=== PATIENT | female | born 1935 | race Caucasian/White ===

== ENCOUNTER 2016-06-16 09:10 | Outpatient (CLI) | payer MEDICARE ==
[2016-06-16 10:39] LABS: ALT (SGPT) 13 U/L (0-55); AST (SGOT) 17 U/L (5-34); Albumin 3.9 g/dL (3.4-4.8); Alkaline Phosphatase 88 U/L (40-150); Anion Gap 12 mmol/L (10-20); BUN (Urea Nitrogen) 15 mg/dL (9.8-20.1); Bilirubin, Direct 0.3 mg/dL (0.1-0.3); Bilirubin, Total 0.9 mg/dL (0.2-1.2); Calc. Creatinine Clearance 0 mL/min (70-130); Calcium 9.1 mg/dL (7.8-10.44); Carbon Dioxide 29 mmol/L (23-31); Cardiac Risk 3.3 (Less than 4.5); Chloride 104 mmol/L (98-107); Cholesterol 196 mg/dL (< 200 Desired); Estimated GFR-MDRD 76; Glucose 98 mg/dL (83-110); HDL Cholesterol 60 mg/dL (>60 Neg Risk); LDL Cholesterol, Calculated 113 mg/dL; Potassium 4.1 mmol/L (3.5-5.1); Sodium 141 mmol/L (136-145); Triglycerides 117 mg/dL (Less than 150)
== END 2016-06-16 09:11 ==
LOC: MADLABBHPM 09:10
PROVIDERS: ATTEND Family Medicine
DX: I10 Essential (primary) hypertension (principal)
CPT/HCPCS: 36415; 80048; 80061; 80076

== ENCOUNTER 2016-09-30 11:10 | Outpatient (CLI) | payer MEDICARE ==
[2016-09-30 15:13] LABS: Bilirubin Negative (Negative); Blood, Urine Small (Negative); Clarity Cloudy (Clear); Glucose, Urine (Dipstick) Negative (Negative); Leukocyte Trace (Negative); Nitrite Negative (Negative); Protein, Urine (Dipstick) Negative (Neg-Trace); Specific Gravity, Urine 1.025 (1.005-1.030); Urobilinogen 0.2 mg/dL (0.2-1.0); pH, Urine 5.5 (5.0-9.0)
[2016-09-30 15:15] LABS: Bacteria/HPF 2+ HPF (None Seen); Crystals/HPF 2+ AMORPH URATES HPF (Negative); WBC/HPF 0-3 HPF (0-3)
== END 2016-09-30 11:11 | disposition home or self-care (01) ==
LOC: MADLABBHPM 11:10
PROVIDERS: ATTEND Family Medicine
DX: R32 Unspecified urinary incontinence (principal)
CPT/HCPCS: 36415; 81001; 87086

== ENCOUNTER 2017-05-14 17:27 | Emergency (ER) | payer MEDICARE ==
[2017-05-14 18:22] LABS: Bilirubin Negative (Negative); Blood, Urine Moderate (Negative); Glucose, Urine (Dipstick) Negative (Negative); Leukocyte Negative (Negative); Nitrite Negative (Negative); Protein, Urine (Dipstick) > or equal to 300 mg/dL (Neg-Trace); Urobilinogen 0.2 mg/dL (0.2-1.0); pH, Urine 5.5 (5.0-9.0)
[2017-05-14 18:31] LABS: Clarity Hazy (Clear); Specific Gravity, Urine 1.022 (1.002-1.036)
[2017-05-14 18:32] LABS: Bacteria/HPF 1+ HPF (None Seen)
[2017-05-14] MEDS ORDERED: Ondansetron HCl/PF 4 MG/2 ML Vial ONE (18:33)
[2017-05-14 18:49] LABS: #Basophils 0.1 thou/uL (0.0-0.2); #Lymphocytes 0.7 thou/uL (1.20-3.40); #Neutrophils 12.6 thou/uL (1.40-6.50); %Lymphocytes 4.5 % (21.0-51.0); %Monocytes 6.6 % (0.0-10.0); %Neutrophils 87.9 % (42.0-75.0); Hemoglobin 15.3 g/dL (12.0-16.0); Mean Corpuscular Volume 94.1 fl (81.0-99.0); Mean Platelet Volume 7.7 fL (7.4-10.4); Platelet Count 361 thou/uL (130-400); RBC Distribution Width 12.2 % (11.5-14.5); Red Blood Cell (RBC) Count 4.95 mill/uL (4.20-5.40); White Blood Cell (WBC) Count 14.3 thou/uL (4.8-10.8)
[2017-05-14 19:01] LABS: Anion Gap 16 mmol/L (10-20); BUN (Urea Nitrogen) 18 mg/dL (9.8-20.1); Calc. Creatinine Clearance 0 mL/min (70-130); Calcium 9.3 mg/dL (7.8-10.44); Carbon Dioxide 25 mmol/L (23-31); Chloride 105 mmol/L (98-107); Estimated GFR-MDRD 56; Glucose 140 mg/dL (83-110); Sodium 142 mmol/L (136-145)
[2017-05-14] MEDS ORDERED: Sulfameth/Trimethoprim DS 800-160mg TAB ONE (19:51)
[2017-05-14] MEDS ORDERED: Acetaminophen 500 MG TAB ONE (19:52)
--- NOTE | 2017-05-14 20:41 | CT ---
CT OF ABDOMEN AND PELVIS PERFORMED WITHOUT CONTRAST ENHANCEMENT: 05/14/17 HISTORY: Right sided abdomen pain. History of bladder cancer. COMPARISON: 01/21/13 study. The lung bases are clear of any infiltrative process. There are hypodensities within the liver which appear to represent cysts, these appear stable as comp ared to the previous exam. The spleen, pancreas and gallbladder regions are unremarkable. The right and left adrenal glands are normal in appearance. The right and left kidneys are normal in size. There is left sided parapelvic cyst formation. On the right side, there is right sided hydronep hrosis and hydroureter related to a 3 to 4 mm calculus which is located at approximately the L4-5 lev el. The ureter distal to this level appears nondilated. There is a nonobstructing lower pole left shannon al calculus noted and there is a punctate mid pole left renal calculus seen. There is no significant periaortic or mesenteric adenopathy. There is fairly extensive diffuse coloni c diverticulosis noted. CT OF PELVIS PERFORMED WITHOUT CONTRAST ENHANCEMENT: Extensive sigmoid diverticulosis is seen. No adenopathy or mass. No free fluid. Appendix region appea rs unremarkable. IMPRESSION: 1. Mild right sided hydronephrosis and hydroureter related to approximately a 4 mm calculus loca mickey at approximately the L4-5 Level. 2. Nonobstructing left renal calculi. 3. Extensive colonic diverticulosis. POS: [facility]
== END 2017-05-14 21:11 | disposition home or self-care (01) ==
LOC: MADERS 17:27
DX: N39.0 Urinary tract infection, site not specified (principal); N13.2 Hydronephrosis with renal and ureteral calculous obstruction; E78.5 Hyperlipidemia, unspecified; I10 Essential (primary) hypertension; E66.9 Obesity, unspecified; M19.90 Unspecified osteoarthritis, unspecified site; K21.9 Gastro-esophageal reflux disease without esophagitis; Z85.51 Personal history of malignant neoplasm of bladder; F41.9 Anxiety disorder, unspecified
CPT/HCPCS: 74176; 80048; 81003; 81015; 85025; 96374; J2405

== ENCOUNTER 2017-09-25 18:42 | Emergency (ER) | payer MEDICARE ==
[2017-09-25 19:44] LABS: Bilirubin Negative (Negative); Blood, Urine Small (Negative); Clarity Cloudy (Clear); Glucose, Urine (Dipstick) Negative (Negative); Leukocyte Small (Negative); Nitrite Negative (Negative); Protein, Urine (Dipstick) 30 mg/dL (Neg-Trace); Specific Gravity, Urine 1.025 (1.005-1.030); Urobilinogen 0.2 mg/dL (0.2-1.0)
[2017-09-25 19:58] LABS: Bacteria/HPF Rare-Few HPF (None Seen)
--- NOTE | 2017-09-25 20:16 | RAD ---
FOUR VIEWS OF THE LEFT KNEE: 09/25/17 INDICATION: Fall with left knee pain. FINDINGS: There is joint capsular distention. There is severe osteoarthrosis of the left knee. No acute fractur e or subluxation is evident. IMPRESSION: No acute osseous abnormality. POS: [facility]
--- NOTE | 2017-09-25 20:23 | RAD ---
THREE VIEWS OF THE LEFT ANKLE 09/25/17 INDICATION: Ankle injury. IMPRESSION: No acute fracture or subluxation is evident. There is soft tissue swelling of the lower foreleg and h indfoot. Enthesopathic change is seen off the posterior calcaneus. POS: [facility]
== END 2017-09-25 20:42 | disposition home or self-care (01) ==
LOC: MADERS 18:42
DX: S86.912A Strain of unspecified muscle(s) and tendon(s) at lower leg level, left leg, initial encounter (principal); S70.02XA Contusion of left hip, initial encounter; N39.0 Urinary tract infection, site not specified; R14.0 Abdominal distension (gaseous); E78.5 Hyperlipidemia, unspecified; I10 Essential (primary) hypertension; E66.9 Obesity, unspecified; M19.90 Unspecified osteoarthritis, unspecified site; F41.9 Anxiety disorder, unspecified; K21.9 Gastro-esophageal reflux disease without esophagitis; Z85.51 Personal history of malignant neoplasm of bladder; W19.XXXA Unspecified fall, initial encounter
CPT/HCPCS: 81001; 87086